=== PATIENT | male | born 1980 | race Caucasian/White ===

== ENCOUNTER 2018-05-16 19:26 | Observation (INO) | payer OTHER ==
[~2018-05-16] VITALS: Ht 182.9 cm; Wt 132.0 kg
[~2018-05-16 19:26] MED LIST: AMBIEN5 MG PO; HYDROCHLOROTHIA25 MG; ULTRAM 50MG50 MG PO
[2018-05-16] MEDS ORDERED: HYDRALAZINE HCL 20 MG/ML VIAL IV STA ×2 (20:30→22:03)
[2018-05-16] MEDS ORDERED: PANTOPRAZOLE 40 MG 10ML VIAL IV STA (20:30)
[2018-05-16] MEDS: SODIUM CHLORIDE 0.9% 1000ML 1,000 ML IV SCH (20:52)
[2018-05-17] VITALS (8 sets, daily range): BP systolic 151–173; BP diastolic 88–105
[2018-05-17] MEDS ORDERED: ONDANSETRON HCL INJ 2 MG/ML VIAL IV STA ×2 (00:14→00:16)
[2018-05-17] MEDS ORDERED: FENTANYL CITRATE/PF 100MCG/2 ML INJ IV ONE (00:15)
[2018-05-17] MEDS: SODIUM CHLORIDE 0.9% 1000ML 1,000 ML IV SCH ×5 (00:25→16:22)
[2018-05-17] MEDS ORDERED: HYDRALAZINE HCL 20 MG/ML VIAL IV PRN (00:30)
[2018-05-17] MEDS ORDERED: MORPHINE SULFATE 2 MG/ML SYR IV PRN (00:30)
[2018-05-17] MEDS ORDERED: ENALAPRILAT IV INJ 1.25 MG/ML VIAL IV PRN (00:30)
[2018-05-17] MEDS ORDERED: NEXIUM20 MG PO (03:34)
[2018-05-17] MEDS ORDERED: LOSARTAN POTASS25 MG PO (03:34)
[2018-05-17 05:27] LABS: BASOPHILS # (AUTO) 0.1 (0.0-0.1); BASOPHILS % 0.5 % (0.0-1.0); EOSINOPHILS # (AUTO) 0.1 (0.0-0.4); EOSINOPHILS % 0.7 % (0.0-6.0); HEMATOCRIT 44.1 % (38.2-49.6); HEMOGLOBIN 15.7 g/dL (14.0-18.0); LYMPHOCYTES # (AUTO) 2.6 (1.0-3.2); LYMPHOCYTES % 20.1 % (18.0-39.1); MEAN CORPUSCULAR HEMOGLOBIN 28.8 pg (28-32); MEAN CORPUSCULAR HGB CONC 35.6 g/dL (31-35); MEAN CORPUSCULAR VOLUME 80.9 fL (81-99); MONOCYTES # (AUTO) 1.3 (0.2-0.8); NEUTROPHILS # (AUTO) 8.8 (2.1-6.9); NEUTROPHILS % 68.3 % (38.7-80.0); PLATELET COUNT 219 x10e3/uL (140-360); RED BLOOD COUNT 5.45 x10e6/uL (4.3-5.7); RED CELL DISTRIBUTION WIDTH 13.8 % (11.7-14.4)
[2018-05-17 05:52] LABS: ALANINE AMINOTRANSFERASE 25 IU/L (0-55); ALBUMIN 3.6 g/dL (3.5-5.0); ALBUMIN/GLOBULIN RATIO 1.1 (0.8-2.0); ALKALINE PHOSPHATASE 83 IU/L (40-150); ANION GAP 12.1 mmol/L (8-16); BLOOD UREA NITROGEN 12 mg/dL (7-26); BUN/CREATININE RATIO 11 (6-25); CALCIUM 9.3 mg/dL (8.4-10.2); CARBON DIOXIDE 27 mmol/L (22-29); CHLORIDE 104 mmol/L (98-107); EST GLOMERULAR FILTRATION RATE > 60 ML/MIN (60-); GLUCOSE 104 mg/dL (74-118); POTASSIUM 4.1 mmol/L (3.5-5.1); SODIUM 139 mmol/L (136-145)
[2018-05-17 06:04] LABS: MAGNESIUM 1.9 MG/DL (1.3-2.1)
[2018-05-17] MEDS: PANTOPRAZOLE 40 MG 10ML VIAL IV SCH (08:55)
[2018-05-17] MEDS: LISINOPRIL 10 MG TAB PO SCH (08:55)
[2018-05-18] VITALS (9 sets, daily range): BP systolic 142–158; BP diastolic 88–97
[2018-05-18] MEDS ORDERED: ACETAMINOPHEN 325 MG TAB ONE (00:41)
[2018-05-18] MEDS: SODIUM CHLORIDE 0.9% 1000ML 1,000 ML IV SCH ×4 (00:43→21:11)
[2018-05-18 05:16] LABS: BASOPHILS # (AUTO) 0.1 (0.0-0.1); BASOPHILS % 0.5 % (0.0-1.0); EOSINOPHILS # (AUTO) 0.3 (0.0-0.4); EOSINOPHILS % 2.9 % (0.0-6.0); HEMATOCRIT 42.8 % (38.2-49.6); HEMOGLOBIN 14.9 g/dL (14.0-18.0); LYMPHOCYTES # (AUTO) 2.8 (1.0-3.2); LYMPHOCYTES % 26.6 % (18.0-39.1); MEAN CORPUSCULAR HEMOGLOBIN 28.9 pg (28-32); MEAN CORPUSCULAR HGB CONC 34.8 g/dL (31-35); MEAN CORPUSCULAR VOLUME 82.9 fL (81-99); MONOCYTES # (AUTO) 1.2 (0.2-0.8); NEUTROPHILS # (AUTO) 6.2 (2.1-6.9); NEUTROPHILS % 58.7 % (38.7-80.0); PLATELET COUNT 203 x10e3/uL (140-360); RED BLOOD COUNT 5.16 x10e6/uL (4.3-5.7); RED CELL DISTRIBUTION WIDTH 13.7 % (11.7-14.4)
[2018-05-18 05:38] LABS: ALANINE AMINOTRANSFERASE 20 IU/L (0-55); ALBUMIN 3.2 g/dL (3.5-5.0); ALKALINE PHOSPHATASE 71 IU/L (40-150); AMYLASE 52 U/L (25-125); ANION GAP 11.5 mmol/L (8-16); BLOOD UREA NITROGEN 9 mg/dL (7-26); BUN/CREATININE RATIO 9 (6-25); CALCIUM 9.1 mg/dL (8.4-10.2); CARBON DIOXIDE 23 mmol/L (22-29); CHLORIDE 109 mmol/L (98-107); CREATININE, SERUM 1.01 mg/dL (0.72-1.25); EST GLOMERULAR FILTRATION RATE > 60 ML/MIN (60-); GLUCOSE 109 mg/dL (74-118); LIPASE 28 U/L (8-78); POTASSIUM 3.5 mmol/L (3.5-5.1); SODIUM 140 mmol/L (136-145)
[2018-05-18] MEDS ORDERED: ACETAMINOPHEN 325 MG TAB PO PRN (07:00)
[2018-05-18] MEDS ORDERED: AMLODIPINE BESYLATE 5 MG TAB PO ONE (07:15)
[2018-05-18] MEDS: PANTOPRAZOLE 40 MG 10ML VIAL IV SCH (08:41)
[2018-05-18] MEDS: LISINOPRIL 10 MG TAB PO SCH (08:42)
[2018-05-19] VITALS: BP 138/92
[2018-05-19 04:00] VITALS: BP 134/82
[2018-05-19 04:47] LABS: BASOPHILS # (AUTO) 0.1 (0.0-0.1); BASOPHILS % 0.7 % (0.0-1.0); EOSINOPHILS # (AUTO) 0.4 (0.0-0.4); EOSINOPHILS % 3.9 % (0.0-6.0); HEMATOCRIT 45.1 % (38.2-49.6); HEMOGLOBIN 15.8 g/dL (14.0-18.0); LYMPHOCYTES # (AUTO) 3.4 (1.0-3.2); LYMPHOCYTES % 34.4 % (18.0-39.1); MEAN CORPUSCULAR HEMOGLOBIN 28.2 pg (28-32); MEAN CORPUSCULAR VOLUME 80.5 fL (81-99); MONOCYTES % 9.9 % (4.4-11.3); NEUTROPHILS % 50.8 % (38.7-80.0); PLATELET COUNT 225 x10e3/uL (140-360); RED CELL DISTRIBUTION WIDTH 13.4 % (11.7-14.4)
[2018-05-19 05:03] LABS: ANION GAP 13.8 mmol/L (8-16); BLOOD UREA NITROGEN 9 mg/dL (7-26); BUN/CREATININE RATIO 9 (6-25); CALCIUM 9.8 mg/dL (8.4-10.2); CARBON DIOXIDE 23 mmol/L (22-29); CHLORIDE 107 mmol/L (98-107); CREATININE, SERUM 0.97 mg/dL (0.72-1.25); EST GLOMERULAR FILTRATION RATE > 60 ML/MIN (60-); GLUCOSE 92 mg/dL (74-118); POTASSIUM 3.8 mmol/L (3.5-5.1); SODIUM 140 mmol/L (136-145)
[2018-05-19 05:29] LABS: THYROID STIMULATING HORMONE 3.107 uIU/mL (0.350-4.940)
[2018-05-19 07:47] LABS: AMYLASE 58 U/L (25-125); LIPASE 37 U/L (8-78)
[2018-05-19 08:16] VITALS: BP 134/82
[2018-05-19 08:19] VITALS: BP 149/94
[2018-05-19] MEDS ORDERED: LISINOPRIL10 MG PO (08:24)
[2018-05-19] MEDS: PANTOPRAZOLE 40 MG 10ML VIAL IV SCH (08:44)
[2018-05-19] MEDS: LISINOPRIL 10 MG TAB PO SCH (08:45)
== END 2018-05-19 10:40 | disposition home or self-care (01) ==
LOC: FSED 19:26 → ERHOLD 05-17 00:21 → IMCU 05-17 02:01
PROVIDERS: ADMIT Internal Medicine; ATTEND Internal Medicine
DX: K85.90 Acute pancreatitis without necrosis or infection, unspecified (principal); I10 Essential (primary) hypertension; I16.1 Hypertensive emergency
CPT/HCPCS: 36415 ×4; 80048; 80053 ×3; 80076; 81003; 82150 ×3; 83690 ×4; 83735; 84443; 85025 ×4; 96374; 96375; 99284; G0378 ×3; J0360 ×2; J2270; J2405; J7030 ×3

== ENCOUNTER 2018-08-17 18:08 | Observation (INO) | payer OTHER ==
[~2018-08-17] VITALS: Ht 182.9 cm; Wt 112.0 kg
[~2018-08-17 18:08] MED LIST changes: +LISINOPRIL10 MG PO; +LOSARTAN POTASS25 MG PO; +NEXIUM20 MG PO
--- OUTSIDE RECORDS SUMMARY | 2018-08-17 18:10 | XMS REPORT | Continuity of Care Document ---
Author Author [facility] Interface Address Unknown Phone Unavailable Problems Problem Status Onset Date Classification Date Reported Comments Source K21.9 Active 04/12/2016 [place] Hypertension Resolved Problem 05/01/2018 [facility] Morbid obesity Active Problem 05/01/2018 [facility] Medications Medication Details Route Status Patient Instructions Ordering Provider Order Date Source Ofloxacin 3 MG/ML Otic Solution 5 drp, RIGHT EAR, BID, X 7 day, # 10 mL, 0 Refill(s), Pharmacy: [facility] [id number] Active 04/28/2018 [facility] losartan 50 mg oral tablet 50 mg=1 tab, PO, Daily, # 90 tab, 0 Refill(s) Active 04/28/2018 [facility] Allergies, Adverse Reactions, Alerts Substance Category Reaction Severity Reaction type Status Date Reported Comments Source traMADol Assertion Drug allergy Active [facility] SOLU-Medrol Assertion Drug allergy Active [facility] Immunizations Immunization Date Given Site Status Last Updated Comments Source Results Order Name Results Value Reference Range Date Interpretation Comments Source Vital Signs Vital Sign Value Date Comments Source BMI Calculated 38.05 04/28/2018 [facility] Weight 127.273 04/28/2018 [facility] Height 182.88 cm 04/28/2018 [facility] Temperature Oral (F) 98.4 F 04/28/2018 [facility] Heart Rate 88 04/28/2018 [facility] Respitory Rate 18 04/28/2018 [facility] Systolic (mm Hg) 150 04/28/2018 [facility] Diastolic (mm Hg) 103 04/28/2018 [facility] Encounters Location Location Details Encounter Type Encounter Number Reason For Visit Attending Provider ADM Date DC Date Status Source Outpatient [id number] DOTTYDAMARIS PRICE 04/28/2018 Active [facility] [place] Outpatient [id number] Dottydamaris Price 04/28/2018 04/29/2018 [facility] Procedures Procedure Code Date Perfomer Comments Source
--- OUTSIDE RECORDS SUMMARY | 2018-08-17 18:10 | XMS REPORT | Summary of Care ---
Author Author ACACIA REED M.D. 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 Unavailable Unavailable ERAN EVANS M.D. Unavailable Unavailable Eran Evans MD Unavailable Unavailable Unavailable Unavailable Functional Status Name Dates Details Functional status health issues are not documented Status: Name Dates Details Cognitive status health issues are not documented Status: Problems Name Dates Details Insomnia (780.52, G47.00) Status: Active Pain in shoulder region, right (719.41, M25.511) Status: Active Opioid use, unspecified, uncomplicated (305.50, F11.90) Status: Active Viral URI with cough (465.9, J06.9) Status: Active Cannot sleep (780.52, G47.00) Status: Active GERD (gastroesophageal reflux disease) (530.81, K21.9) Status: Active Gout (274.9, M10.9) Status: Active Obesity (278.00, E66.9) Status: Active Hypokalemia (276.8, E87.6) Status: Active Acute bronchitis (466.0, J20.9) Status: Active Dysphagia (787.20, R13.10) Status: Active Essential hypertension (401.9, I10) Status: Active Allergic bronchitis (493.90, J45.909) Status: Active Medications Name Dates Details NexIUM 40 MG Oral Capsule Delayed Release TAKE 1 CAPSULE DAILY Active Potassium TABS TAKE 1 TABLET TWICE DAILY * Refills: 0 Active Magnesium CAPS TAKE 1 CAPSULE DAILY * Refills: 0 Active Narcan 4 MG/0.1ML Nasal Liquid Nalonexone 1 gm / 1 ml - to be used in cases of acute overdose exposure. * Quantity: 1 Refills: 1 ERAN EVANS M.D. * Start : 06-Dec-2016 Active ProAir HFA 108 (90 Base) MCG/ACT Inhalation Aerosol Solution INHALE 1 PUFF BY MOUTH EVERY 4 HOURS NEEDED * Quantity: 1 Refills: 6 ACACIA REED M.D. * Start : 18-Sep-2017 Active 8.5 GM Inhaler Losartan Potassium-HCTZ 50-12.5 MG Oral Tablet TAKE 1 TABLET ONCE DAILY. * Quantity: 1 Refills: 1 ACACIA REED M.D. * Start : 17-Jan-2018 Active 90 Tablet Bottle Allergies and Adverse Reactions Name Dates Details SOLU-medrol SOLR (Allergy) Status: Active TraMADol HCl TABS (Allergy) Status: Active Past Medical History Name Dates Details History of Chronic GERD (530.81, K21.9) Status: Resolved Procedures Procedure Dates Details [[facility]] LIPID PANEL Date: 17-Jan-2018 Immunization Name Dates Details Immunizations not documented Family History Name Dates Details Family history of malignant neoplasm of breast (V16.3, Z80.3) Status: Active Name Dates Details Family history of colon cancer (V16.0, Z80.0) Status: Active Name Dates Details Family history of type 2 diabetes mellitus (V18.0, Z83.3) Status: Active Social History Name Dates Details - Status: Name Dates Details Never smoker Vital Signs Date Test Result Details [id number] BP Systolic 158 mm[Hg] Status: Comments: Location: LUE; Position: Sitting BP Diastolic 89 mm[Hg] Status: Comments: Location: LUE; Position: Sitting Heart Rate 86 /min Status: Comments: Quality: Normal [id number]:02 BP Systolic 157 mm[Hg] Status: Comments: Location: LUE; Position: Sitting BP Diastolic 75 mm[Hg] Status: Comments: Location: LUE; Position: Sitting Heart Rate 95 /min Status: Comments: Quality: Normal Height 72 in Status: Weight 279 lb Status: Body Mass Index Calculated 37.84 kg/m2 Status: Body Surface Area Calculated 2.45 m2 Status: Temperature 96.5 f Status: Comments: Method: Temporal Results Date Description Value Details Results not documented Plan of Care Name Dates Details Planned Observations Planned Goals not documented Interventions Provided Medication Changes* Losartan Potassium-HCTZ 50-12.5 MG Oral Tablet - Start Labs/Procedures/Imaging* [QL] LIPID PANEL; To Be Done: 17 Jan 2018 Plan* Respiratory symtoms with low fever cough congestion runny nose and sputum are most commonly caused by environmental irritants. Here they include ozone, chemical, pollens, and car exhaust. Treatment is to take lots of fluids, gargle with salt water (1tsp in 8ounces water) mucinex,, cough medicine and cough candies. Nasal steroids like Nasonex or Flonase plus nasal saline spray and for the brave Neti Pot clear the sinuses also Vicks in boiling water with a towel over your head. Over the counter antihistamines claritin, zyrtec, harjinder (benadryl is too sedating). adding a decongestant ( the D in some medications) helps dry mucosa out but may raise blood pressure * Steroids can provide temporary relief but should not be used more than every few months as they suppress your immune system and raise glucose .Without high fever this is not infection and antibiotics do not help. Symptoms are worse in the spring and fall but now seem to occur year round. If all fails an child day care provider may be able to to help with better avoidance of irritants or desensitization which however is often expensive and can take a long time with no guarantee of permanent cure Instructions Name Dates Details Instructions not documented Encounters Appointment; ERAN EVANS M.D. Encounter Diagnosis: Problem not documented On: 18-Jan-2016 11:00 Appointment; ERAN EVANS M.D. Encounter Diagnosis: Problem not documented On: 01-Feb-2016 14:00 Appointment; ERAN EVANS M.D. Encounter Diagnosis: Problem not documented On: 08-Feb-2016 12:15 Appointment; ERAN EVANS M.D. Encounter Diagnosis: Problem not documented On: 22-Feb-2016 13:15 Appointment; ANG SHORT M.D. Encounter Diagnosis: Problem not documented On: 12-Apr-2016 10:30 Appointment; ERAN EVANS M.D. Encounter Diagnosis: Problem not documented On: 05-Dec-2016 15:30 Appointment; ERAN EVANS M.D. Encounter Diagnosis: Problem not documented On: 13-Feb-2017 12:15 Appointment; ACACIA REED M.D. Encounter Diagnosis: Problem not documented On: 04-Jul-2017 13:30 Appointment; ACACIA REED M.D. Encounter Diagnosis: Problem not documented On: 01-Aug-2017 14:30 Appointment; ERAN EVANS M.D. Encounter Diagnosis: Problem not documented On: 18-Sep-2017 13:15 Appointment; ERAN EVANS M.D. Encounter Diagnosis: Problem not documented On: 15-Jan-2018 11:30 Appointment; ACACIA REED M.D. Encounter Diagnosis: Problem not documented On: 17-Jan-2018 13:00
[2018-08-17 19:41] LABS: BILIRUBIN,URINE NEGATIVE (NEGATIVE); CLARITY,URINE CLEAR (CLEAR); COLOR,URINE YELLOW (YELLOW); KETONES,URINE TRACE (NEGATIVE); LEUKOCYTE ESTERASE ,URINE NEGATIVE (NEGATIVE); NITRITE,URINE NEGATIVE (NEGATIVE); PROTEIN,URINE DIPSTICK NEGATIVE (NEGATIVE); URINE UROBILINOGEN 0.2 mg/dL (0.2 - 1)
[2018-08-17 19:48] LABS: BASOPHILS # (AUTO) 0.1 (0.0-0.1); BASOPHILS % 0.7 % (0.0-1.0); EOSINOPHILS # (AUTO) 0.2 (0.0-0.4); EOSINOPHILS % 1.2 % (0.0-6.0); HEMATOCRIT 51.2 % (38.2-49.6); HEMOGLOBIN 17.8 g/dL (14.0-18.0); LYMPHOCYTES # (AUTO) 2.6 (1.0-3.2); LYMPHOCYTES % 15.9 % (18.0-39.1); MEAN CORPUSCULAR HEMOGLOBIN 28.8 pg (28-32); MEAN CORPUSCULAR HGB CONC 34.8 g/dL (31-35); MEAN CORPUSCULAR VOLUME 82.7 fL (81-99); MONOCYTES # (AUTO) 1.7 (0.2-0.8); MONOCYTES % 10.4 % (4.4-11.3); NEUTROPHILS # (AUTO) 11.7 (2.1-6.9); NEUTROPHILS % 71.3 % (38.7-80.0); PLATELET COUNT 206 x10e3/uL (140-360); RED BLOOD COUNT 6.19 x10e6/uL (4.3-5.7); RED CELL DISTRIBUTION WIDTH 14.5 % (11.7-14.4)
[2018-08-17 20:00] LABS: ALANINE AMINOTRANSFERASE 30 IU/L (0-55); ALBUMIN 4.3 g/dL (3.5-5.0); ALBUMIN/GLOBULIN RATIO 1.3 (0.8-2.0); ALKALINE PHOSPHATASE 99 IU/L (40-150); ANION GAP 16.3 mmol/L (8-16); BLOOD UREA NITROGEN 11 mg/dL (7-26); BUN/CREATININE RATIO 10 (6-25); CALCIUM 10.2 mg/dL (8.4-10.2); CARBON DIOXIDE 26 mmol/L (22-29); CHLORIDE 102 mmol/L (98-107); CREATININE, SERUM 1.09 mg/dL (0.72-1.25); EST GLOMERULAR FILTRATION RATE > 60 ML/MIN (60-); GLUCOSE 101 mg/dL (74-118); POTASSIUM 4.3 mmol/L (3.5-5.1); SODIUM 140 mmol/L (136-145)
[2018-08-17 20:01] LABS: AMYLASE 57 U/L (25-125); LIPASE 25 U/L (8-78)
[2018-08-17 20:07] LABS: BACTERIA,URINE FEW /HPF; EPITHELIAL CELLS,URINE RARE /LPF; RBC,URINE 0-5 /HPF (0-5); WBC,URINE (MAN) 0-5 /HPF (0-5)
[2018-08-17] MEDS ORDERED: NEXIUM20 M1 PO (20:45)
[2018-08-17] MEDS ORDERED: XYZAL5 MG PO (20:45)
[2018-08-17 20:56] LABS: EOSINOPHILS % (MANUAL) 2 % (0-7); LYMPHOCYTES % (MANUAL) 11 % (19-48); MONOCYTES % (MANUAL) 16 % (3.4-9.0); NEUTROPHILS % (MANUAL) 71 % (40-74); PLATELET ESTIMATE ADEQUATE; PLATELET MORPHOLOGY COMMENT NORMAL; RBC MORPHOLOGY COMMENT NORMAL
[2018-08-17] MEDS ORDERED: KETOROLAC TROMETHAMINE 30 MG/ML VIAL IV STA (21:12)
--- NOTE | 2018-08-17 22:06 | Diagnostic Imaging Report ---
EXAM: CT ABDOMEN AND PELVIS with IV CONTRAST DATE: 08/17/2018 7:54 PM Time stamp on Exam: 2141 hours INDICATION: Epigastric and right upper quadrant pain COMPARISON: None TECHNIQUE: The abdomen and pelvis were scanned using a multidetector helical scanner. Coronal and sagittal reformations were obtained. Dose modulation, iterative reconstruction, and/or weight based adjustment of the mA/kV was utilized to reduce the radiation dose to as low as reasonably achievable. Routine protocol performed. IV Contrast: 100 cc Isovue-370 Oral Contrast: Water FINDINGS: LOWER THORAX: No consolidations LIVER: No masses BILIARY: The gallbladder is unremarkable. No ductal dilation. SPLEEN: No masses PANCREAS: Inflammation around the head of the pancreas. No ductal dilation. No abnormal fluid collections. ADRENALS: No nodules KIDNEYS: Symmetric perfusion. No enhancing masses. No hydronephrosis. GI TRACT: No distention, wall thickening or evidence of obstruction. Normal appendix. VESSELS: Unremarkable PERITONEUM/RETROPERITONEUM: No free air or fluid LYMPH NODES: No lymphadenopathy REPRODUCTIVE ORGANS: Unremarkable BLADDER: Unremarkable SOFT TISSUES: Unremarkable BONES: No suspicious bone lesions. IMPRESSION: Findings consistent with acute interstitial edematous pancreatitis. Signed by: Dr. Abbie Grady M.D. on 08/17/2018 10:02 PM
[2018-08-17] MEDS: LEVOFLOXACIN 500MG/D5W 100ML IV SCH (23:59)
[2018-08-18] VITALS (9 sets, daily range): BP systolic 127–155; BP diastolic 70–101
[2018-08-18] MEDS ORDERED: DEXTROSE 5%/0.45% SOD CHL 1,000 ML IV SCH (00:15)
--- OUTSIDE RECORDS SUMMARY | 2018-08-18 00:24 | XMS REPORT ---
Author Author [facility] Address Unknown Phone Unavailable Care Team Providers Care Wan Support Specialist Name Role Phone Tiffanie MORRISSEY Unavailable Unavailable Problems This patient has no known problems. Allergies, Adverse Reactions, Alerts This patient has no known allergies or adverse reactions. Medications This patient has no known medications. Results Test Description Test Time Test Comments Text Results Atomic Results Result Comments CT ABDOMEN/PELVIS W 2018-08-17 21:55:00 [place] [id number] Patient Name: SHAY FLEMING MR #: [id number] : 1980 Age/Sex: 38/M Req #: [id number] Adm Physician: Ordered by: PRUDENCE MORRISSEY MD Report #: [id number] Location: ER Room/Bed: Procedure: [id number] CT/CT ABDOMEN/PELVIS W Exam Date: 08/17/18 Exam Time: 2139 REPORT STATUS: Signed EXAM: CT ABDOMEN AND PELVIS with IV CONTRAST DATE: 10/17/2017 7:54 PM Time stamp on Exam: 2141 hours INDICATION: Epigastric and right upper quadrant pain COMPARISON: None TECHNIQUE: The abdomen and pelvis were scanned using a multidetector helical scanner. Coronal and sagittal reformations were obtained. Dose modulation, iterative reconstruction, and/or weight based adjustment of the mA/kV was utilized to reduce the radiation dose to as low as reasonably achievable. Routine protocol performed. IV Contrast: 100 cc Isovue-370 Oral Contrast: Water FINDINGS: LOWER THORAX: No consolidations LIVER: No masses BILIARY: The gallbladder is unremarkable. No ductal dilation. SPLEEN: No masses PANCREAS: Inflammation around the head of the pancreas. No ductal dilation. No abnormal fluid collections. ADRENALS: No nodules KIDNEYS: Symmetric perfusion. No enhancing masses. No hydronephrosis. GI TRACT: No distention, wall thickening or evidence of obstruction. Normal appendix. VESSELS: Unremarkable PERITONEUM/RETROPERITONEUM: No free air or fluid LYMPH NODES: No lymphadenopathy REPRODUCTIVE ORGANS: Unremarkable BLADDER: Unremarkable SOFT TISSUES: Unremarkable BONES: No suspicious bone lesions. IMPRESSION: Findings consistent with acute interstitial edematous pancreatitis. Signed by: Dr. Sandy Eugene M.D. on 08/17/2018 10:02 PM Dictated By: SNADY EUGENE MD 01 Transcribed By: ELIA on 08/17/182201 COPY TO: PRUDENCE MORRISSEY MD
[2018-08-18] MEDS: LACTATED RINGER'S 1,000 ML IV SCH ×7 (01:20→20:50)
[2018-08-18] MEDS ORDERED: INFLUENZA VIRUS VAC SPLIT INJ 0.5 ML SYR IM ONE (02:00)
[2018-08-18] MEDS: KETOROLAC TROMETHAMINE 30 MG/ML VIAL IV PRN ×3 (03:58→22:59)
[2018-08-18] MEDS ORDERED: SODIUM CHLORIDE 0.9% 50ML 50 ML ONE (05:04)
[2018-08-18] MEDS ORDERED: IOPAMIDOL 370 MG/ML 200 ML INFUS..BTL INJ ONE (05:04)
[2018-08-18] MEDS: LISINOPRIL 10 MG TAB PO SCH ×2 (09:00→17:41)
[2018-08-18 18:32] LABS: CHOL/HDL RATIO 4.6 (3.9-4.7)
[2018-08-18] MEDS: LEVOFLOXACIN 500MG/D5W 100ML IV SCH (22:59)
[2018-08-19] VITALS (9 sets, daily range): BP systolic 113–166; BP diastolic 59–102
[2018-08-19] MEDS: LACTATED RINGER'S 1,000 ML IV SCH ×7 (00:35→21:00)
[2018-08-19 05:49] LABS: BASOPHILS # (AUTO) 0.1 (0.0-0.1); BASOPHILS % 0.6 % (0.0-1.0); EOSINOPHILS # (AUTO) 0.3 (0.0-0.4); EOSINOPHILS % 3.4 % (0.0-6.0); HEMOGLOBIN 14.3 g/dL (14.0-18.0); LYMPHOCYTES # (AUTO) 2.5 (1.0-3.2); LYMPHOCYTES % 29.3 % (18.0-39.1); MEAN CORPUSCULAR HEMOGLOBIN 29.1 pg (28-32); MEAN CORPUSCULAR HGB CONC 34.9 g/dL (31-35); MEAN CORPUSCULAR VOLUME 83.3 fL (81-99); MONOCYTES # (AUTO) 0.9 (0.2-0.8); MONOCYTES % 10.1 % (4.4-11.3); NEUTROPHILS # (AUTO) 4.9 (2.1-6.9); NEUTROPHILS % 56.3 % (38.7-80.0); PLATELET COUNT 174 x10e3/uL (140-360); RED BLOOD COUNT 4.92 x10e6/uL (4.3-5.7); RED CELL DISTRIBUTION WIDTH 13.9 % (11.7-14.4)
[2018-08-19 05:51] LABS: BLOOD UREA NITROGEN 9 mg/dL (7-26); BUN/CREATININE RATIO 9 (6-25); CALCIUM 9.7 mg/dL (8.4-10.2); CARBON DIOXIDE 28 mmol/L (22-29); CHLORIDE 107 mmol/L (98-107); CREATININE, SERUM 0.98 mg/dL (0.72-1.25); EST GLOMERULAR FILTRATION RATE > 60 ML/MIN (60-); GLUCOSE 94 mg/dL (74-118); SODIUM 145 mmol/L (136-145)
[2018-08-19 06:06] LABS: AMYLASE 59 U/L (25-125); LIPASE 29 U/L (8-78)
[2018-08-19] MEDS: PANTOPRAZOLE 40 MG 10ML VIAL IV SCH (08:52)
--- NOTE | 2018-08-19 08:56 | History and Physical ---
TIME: 4 p.m. PRIMARY CARE PHYSICIAN: Dr. Santos CHIEF COMPLAINT: Abdominal discomfort. HISTORY OF PRESENT ILLNESS: This is a 38-year-old man with a history of pancreatitis in May of 2018, now developing similar abdominal tightness and discomfort. Therefore, came to the hospital here. Imaging suggested pancreatitis, although his enzymes are negative. The patient said that his enzymes were also negative in May. He is admitted for further evaluation and management. He denies any chest pain, shortness of breath. Denies any fever, chills or sweats. Denies any alcohol use. He still has his gallbladder. PAST MEDICAL HISTORY: Hypertension, pancreatitis in May 2018, GERD. PAST SURGICAL HISTORY: None. ALLERGIES: PER ELECTRONIC MEDICAL RECORD. FAMILY HISTORY/SOCIAL HISTORY: Patient is . He has no children. 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 Occasional alcohol. No cigarettes or illicits. MEDICATIONS: Per electronic medical record. REVIEW OF SYSTEMS: Denies any dizziness, chest pain, shortness of breath, fever, chills, sweats, nausea, vomiting, diarrhea, headache, or back pain. PHYSICAL EXAMINATION VITAL SIGNS: Have been reviewed. GENERAL: A tired-appearing man resting in bed. HEENT: Anicteric. CARDIOVASCULAR: Normal S1 and S2. LUNGS: Moderate breath sounds. ABDOMEN: Soft and nondistended. He has mild tenderness in the epigastric region and slightly right to the epigastric region. Negative Diego's sign. EXTREMITIES: No edema or calf tenderness. NEUROLOGICAL: Alert and oriented times 3. Moving all extremities. SKIN: Dry. PSYCHIATRIC: Normal affect. LABS: Reviewed. MEDICATIONS: Reviewed. ASSESSMENT: A 38-year-old man with: 1. Acute pancreatitis. 2. Hyperbilirubinemia. 3. Hypertension. 4. Obesity: Body mass index is 35.3. PLAN 1. IV fluids. 2. Discontinue lisinopril which can cause pancreatitis. 3. Obtain hemoglobin A1c and lipid panel. 4. Continue antibiotics in the setting of leukocytosis. 5. Obtain ultrasound of the gallbladder. 6. Monitor closely and use SCD for DVT prophylaxis and PPI. Job#: [id number] DC
--- NOTE | 2018-08-19 14:46 | Diagnostic Imaging Report ---
EXAMINATION: Right upper quadrant ultrasound CLINICAL INDICATION: Pancreatitis COMPARISON: None DISCUSSION: Transverse and longitudinal images of the right upper quadrant were obtained. The liver is normal in size measuring 14.3centimeters in length in the right midclavicular line and shows normal echogenicity. No focal masses are seen in the liver. There is no intrahepatic biliary dilatation. The common bile duct is normal in caliber and measures 0.5 cm. The main portal vein is normal in caliber and measures 0.7 cm with normal hepatopetal flow. The gallbladder is normal in appearance without stones, wall thickening or pericholecystic fluid. The sonographic Diego's sign is negative. The pancreas is poorly visualized. The right kidney measures 11 centimeters in length. There is normal renal cortical echogenicity and no hydronephrosis, mass or shadowing calculi. The visualized portions of the great vessels are normal. No free fluid is seen. IMPRESSION: Unremarkable right upper quadrant ultrasound. Signed by: Dr. Kulwinder Rogers M.D. on 08/19/2018 2:43 PM
[2018-08-19] MEDS: LABETALOL HCL 100 MG TAB PO SCH (21:36)
[2018-08-19] MEDS: LEVOFLOXACIN 500MG/D5W 100ML IV SCH (23:29)
[2018-08-20] MEDS: LACTATED RINGER'S 1,000 ML IV SCH (03:00)
[2018-08-20 04:00] VITALS: BP 136/77
[2018-08-20 04:54] LABS: BASOPHILS # (AUTO) 0.1 (0.0-0.1); BASOPHILS % 0.9 % (0.0-1.0); EOSINOPHILS # (AUTO) 0.3 (0.0-0.4); EOSINOPHILS % 3.8 % (0.0-6.0); HEMATOCRIT 40.9 % (38.2-49.6); HEMOGLOBIN 14.2 g/dL (14.0-18.0); LYMPHOCYTES # (AUTO) 2.3 (1.0-3.2); LYMPHOCYTES % 28.9 % (18.0-39.1); MEAN CORPUSCULAR HEMOGLOBIN 28.5 pg (28-32); MEAN CORPUSCULAR HGB CONC 34.7 g/dL (31-35); MONOCYTES # (AUTO) 0.8 (0.2-0.8); MONOCYTES % 9.8 % (4.4-11.3); NEUTROPHILS # (AUTO) 4.5 (2.1-6.9); NEUTROPHILS % 56.3 % (38.7-80.0); PLATELET COUNT 180 x10e3/uL (140-360); RED BLOOD COUNT 4.99 x10e6/uL (4.3-5.7); RED CELL DISTRIBUTION WIDTH 13.6 % (11.7-14.4)
[2018-08-20 05:15] LABS: ANION GAP 15.9 mmol/L (8-16); BLOOD UREA NITROGEN 7 mg/dL (7-26); BUN/CREATININE RATIO 7 (6-25); CALCIUM 9.9 mg/dL (8.4-10.2); CARBON DIOXIDE 25 mmol/L (22-29); CHLORIDE 104 mmol/L (98-107); CREATININE, SERUM 0.94 mg/dL (0.72-1.25); EST GLOMERULAR FILTRATION RATE > 60 ML/MIN (60-); GLUCOSE 93 mg/dL (74-118); POTASSIUM 3.9 mmol/L (3.5-5.1); SODIUM 141 mmol/L (136-145)
[2018-08-20] MEDS ORDERED: LABETALOL HCL100 MG PO (05:35)
[2018-08-20] MEDS ORDERED: LEVAQUIN500 MG PO (05:35)
[2018-08-20 07:21] VITALS: BP 137/90
[2018-08-20] MEDS: LABETALOL HCL 100 MG TAB PO SCH (08:34)
[2018-08-20] MEDS: PANTOPRAZOLE 40 MG 10ML VIAL IV SCH (08:34)
[2018-08-20 08:35] VITALS: BP 137/90
[2018-08-20 11:21] VITALS: BP 179/101
== END 2018-08-20 13:41 | disposition home or self-care (01) ==
LOC: ER 18:08 → ERHOLD 23:12 → MED/SURG 08-18 00:29 → IMCU 08-19 09:17
PROVIDERS: ADMIT Internal Medicine; ATTEND Internal Medicine
DX: K85.00 Idiopathic acute pancreatitis without necrosis or infection (principal); R10.13 Epigastric pain; I10 Essential (primary) hypertension; K21.9 Gastro-esophageal reflux disease without esophagitis; E80.6 Other disorders of bilirubin metabolism; E66.9 Obesity, unspecified; Z68.35 Body mass index [BMI] 35.0-35.9, adult
CPT/HCPCS: 36415 ×4; 74177; 76705; 80048 ×2; 80053; 80061; 81001; 82150 ×2; 83036; 83690 ×2; 83970; 85025 ×3; 86039; 96374; 99284; G0378 ×4; J1885 ×2; J1956 ×2; J7120 ×3; Q9967